=== PATIENT | male | born 1965 | race Caucasian/White ===

== ENCOUNTER 2020-06-04 08:32 | Emergency (ER) | payer MEDICAID, OTHER ==
[~2020-06-04] VITALS: Ht 152.4 cm; Wt 79.4 kg
[2020-06-04] MEDS ORDERED: SODIUM CHLORIDE 0.9% 1,000 ML IVB ONE (10:44)
[2020-06-04] MEDS ORDERED: LORazepam 2MG/ML-1ML VIAL IV ONE (10:45)
[2020-06-04] MEDS ORDERED: SODIUM CHLORIDE 0.9% 1,000 ML IV ONE (10:45)
[2020-06-04] MEDS: FOLIC ACID 1 MG, MULTIPLE VITAMIN 10 ML, MAGNESIUM SULF SDV 50% 8 MEQ, THIAMINE INJ 100... INJ SCH ×10 (11:18→12:00)
[2020-06-04 11:38] LABS: Basophils # (auto) 0 10 ^3/uL (0-0.2); Basophils % (auto) 0.9 % (0.0-2.0); Eosinophils # (auto) 0 10 ^3/uL (0-0.8); Eosinophils % (auto) 0.4 % (0.0-7.0); Hematocrit 50.3 % (41.0-53.0); Hemoglobin 17.1 g/dL (13.5-17.5); Lymphocytes # (auto) 0.6 10 ^3/uL (0.4-5.4); Lymphocytes % (auto) 14.3 % (10.0-50.0); Mean Corpuscular Hemoglobin 33.5 pg (28.0-32.0); Mean Corpuscular Hgb Conc. 33.9 g/dL (32.0-36.0); Mean Corpuscular Volume 98.6 fL (80.0-100.0); Monocytes # (auto) 0.6 10 ^3/uL (0-1.3); Monocytes % (auto) 14.4 % (0.0-12.0); Neutrophils # (auto) 2.7 10 ^3/uL (1.6-8.6); Nucleated Red Blood Cells % 0.1 %; Platelet Count (auto) 103 10^3/uL (140-450); Red Cell Distribution Width 14.5 % (11.8-14.3); White Blood Cell 3.9 10^3/uL (4.4-10.8)
[2020-06-04 11:44] LABS: Calcium 9.6 mg/dL (8.5-10.1); Chloride 104 mmol/L (98-107); Potassium 4.3 mmol/L (3.5-5.1); Sodium 136 mmol/L (136-145)
[2020-06-04 11:49] LABS: Alanine Aminotransferase 98 U/L (16-61); Alkaline Phosphatase 130 U/L (45-117); Anion Gap 11 (5-15); Aspartate Aminotransferase 111 U/L (15-37); BUN/Creatinine Ratio 12.3; Blood Alcohol < 3.0 mg/dL (0-5); Blood Urea Nitrogen 9 mg/dL (7-18); Carbon Dioxide 21 mmol/L (21-32); GFR African American 144 mL/min; GFR Non-African American 119 mL/min; Glucose 84 mg/dL (74-106); Total Protein 8.7 g/dL (6.4-8.2)
[2020-06-04 16:12] VITALS: BP 163/116
== END 2020-06-04 17:19 | disposition home or self-care (01) ==
LOC: ER 08:32
DX: F25.9 Schizoaffective disorder, unspecified (principal); F10.239 Alcohol dependence with withdrawal, unspecified; R74.8 Abnormal levels of other serum enzymes; K76.0 Fatty (change of) liver, not elsewhere classified; J44.9 Chronic obstructive pulmonary disease, unspecified; I10 Essential (primary) hypertension; F31.9 Bipolar disorder, unspecified; F17.210 Nicotine dependence, cigarettes, uncomplicated
CPT/HCPCS: 36415; 71045; 71250; 80053; 80320; 83735; 85025; 93005; 96365; 96366; 96375; 99285; J2060; J3411; J3475; J7030; J7070; 96374

== ENCOUNTER 2020-06-11 16:53 | Inpatient (IN) | payer MEDICAID ==
[~2020-06-11] VITALS: Ht 185.4 cm; Wt 83.6 kg
[2020-06-11 19:08] LABS: Hematocrit 41.3 % (41.0-53.0); Hemoglobin 14.2 g/dL (13.5-17.5); Mean Corpuscular Hemoglobin 34.1 pg (28.0-32.0); Mean Corpuscular Hgb Conc. 34.5 g/dL (32.0-36.0); Platelet Count (auto) 189 10^3/uL (140-450); Red Blood Cells 4.17 10^6/uL (4.5-5.90); Red Cell Distribution Width 14.1 % (11.8-14.3); White Blood Cell 6.7 10^3/uL (4.4-10.8)
[2020-06-11 19:11] LABS: Basophils % (manual) 0 (0.0-2.0); Blast Cells 0; Metamyelocytes % 0; Myelocytes % 0; Promyelocytes % 0; Reactive Lymphocytes 0
[2020-06-11 19:28] LABS: Albumin 2.9 g/dL (3.4-5.0); Anion Gap 12 (5-15); Blood Urea Nitrogen 52 mg/dL (7-18); Calcium 8.7 mg/dL (8.5-10.1); Carbon Dioxide 20 mmol/L (21-32); Chloride 103 mmol/L (98-107); Glucose 99 mg/dL (74-106); Sodium 135 mmol/L (136-145)
[2020-06-11 19:46] LABS: Alanine Aminotransferase 32 U/L (16-61); Alkaline Phosphatase 97 U/L (45-117); Aspartate Aminotransferase 19 U/L (15-37); BUN/Creatinine Ratio 16.9; Bilirubin, Total 0.7 mg/dL (0.2-1.0); GFR African American 27 mL/min; GFR Non-African American 23 mL/min; Total Protein 7.5 g/dL (6.4-8.2)
[2020-06-11 20:46] LABS: Band Neutrophils % (manual) 8
[2020-06-11 20:47] LABS: Eosinophils % (manual) 2 (0-7); Lymphocytes % (manual) 11 (10.0-50.0); Monocytes % (manual) 17 (0-12)
[2020-06-11] MEDS ORDERED: POTASSIUM CHLORIDE 40 MEQ in D5W 5% 1,000 ML IV SCH (21:45)
[2020-06-11] MEDS ORDERED: chlordiazePOXIDE HCL 25 MG CAP PO PRN (22:15)
[2020-06-11] MEDS ORDERED: ALUM & MAG HYDROX-SIMETH LIQ(MAALOX) 30 ML PO PRN (22:15)
[2020-06-11] MEDS ORDERED: MORPHINE SULF INJ 2 MG/ML SYRINGE 1ML IV PRN (22:15)
[2020-06-11] MEDS ORDERED: DOCUSATE SOD 100 MG CAP PO PRN (22:15)
[2020-06-11] MEDS ORDERED: ACETAMINOPHEN 325 MG TAB PO PRN (22:15)
[2020-06-11] MEDS ORDERED: ONDANSETRON HCL 4 MG/2 ML VIAL IV PRN (22:15)
[2020-06-11] MEDS ORDERED: LORazepam 0.5 MG TAB PO PRN (22:15)
[2020-06-11] MEDS ORDERED: HYDROcodone-ACET 5/325MG TAB PO PRN (22:15)
[2020-06-11] MEDS ORDERED: TEMAZEPAM 15 MG CAP PO PRN (22:15)
[2020-06-12] MEDS: SODIUM CHLORIDE 0.9% 1,000 ML IV SCH ×2 (09:00→18:03)
[2020-06-12 10:22] LABS: Basophils # (auto) 0 10 ^3/uL (0-0.2); Eosinophils # (auto) 0 10 ^3/uL (0-0.8); Eosinophils % (auto) 0.2 % (0.0-7.0); Hemoglobin 14.2 g/dL (13.5-17.5); Lymphocytes # (auto) 0.8 10 ^3/uL (0.4-5.4); Neutrophils # (auto) 5.2 10 ^3/uL (1.6-8.6); White Blood Cell 7.2 10^3/uL (4.4-10.8)
[2020-06-12 10:24] LABS: Basophils % (auto) 0.4 % (0.0-2.0); Hematocrit 41.7 % (41.0-53.0); Lymphocytes % (auto) 11.3 % (10.0-50.0); Mean Corpuscular Hemoglobin 33.8 pg (28.0-32.0); Mean Corpuscular Hgb Conc. 34.1 g/dL (32.0-36.0); Mean Corpuscular Volume 99.1 fL (80.0-100.0); Monocytes # (auto) 1.1 10 ^3/uL (0-1.3); Monocytes % (auto) 15.4 % (0.0-12.0); Neutrophils % (auto) 72.7 % (37.0-80.0); Nucleated Red Blood Cells % 0.2 %; Platelet Count (auto) 236 10^3/uL (140-450); Red Cell Distribution Width 14.1 % (11.8-14.3)
[2020-06-12 10:31] LABS: BUN/Creatinine Ratio 27.7; Calcium 9.6 mg/dL (8.5-10.1); Magnesium 2.4 mg/dL (1.6-2.6); Phosphorus 2.8 mg/dL (2.5-4.90); Potassium 3.4 mmol/L (3.5-5.1)
[2020-06-12] MEDS ORDERED: POTASSIUM CHL 20 Meq TABLET PO ONE (12:30)
--- NOTE | 2020-06-12 16:04 | NUR ---
Est energy needs 6198-8947 kcal (20-25 kcal/kg BW 86kg) est protein needs 54-65g (0.6-0.75g/kg BW 86kg r/t elevated RFT) caro casillas. Addendum: 06/12/20 at [address] Amended: Links added.
--- NOTE | 2020-06-12 16:39 | NUR ---
Telemetry admit from ER ANGEL PENN admitted to Telemetry unit after SBAR received. Patient oriented to Betsy johnson RN, unit, room, bed, and unit policies regarding patient care and visiting hours. Patient now on continuous telemetry monitoring, tele box # 55 and telemetry reading on arrival to unit is SINUS RHYTHM IN THE 90'S. Patient weighed by bedscale and encouraged to call if they need something. All questions and concerns addressed, patient verbalized understanding.
[2020-06-12 17:00] VITALS: BP 142/97
--- NOTE | 2020-06-12 18:49 | NUR ---
MRSA SWAB COLLECTED AND SENT TO LAB VIA BULLET.
--- NOTE | 2020-06-12 19:45 | NUR ---
Opening Shift Note Assumed care of patient, awake and alert. No S/S of distress/SOB or pain. Instructed on POC, questions answered. Bed locked in lowest position with side rails up x2 for safety. Call light is within reach and patient encouraged to call as needed. Will continue to monitor for changes Q1hr and PRN.
[2020-06-12] MEDS: FOLIC ACID 1 MG, MULTIPLE VITAMIN 10 ML, MAGNESIUM SULF SDV 50% 8 MEQ, THIAMINE INJ 100... INJ SCH ×5 (20:15)
[2020-06-12 22:00] VITALS: BP 150/98
[2020-06-13] MEDS: SODIUM CHLORIDE 0.9% 1,000 ML IV SCH (04:05)
[2020-06-13 05:13] VITALS: BP 158/109
--- NOTE | 2020-06-13 06:38 | NUR ---
PAGED FOR PATIENTS HIGH BLOOD PRESSURE 158/109 HR 79. PATIENT HAS NO BLOOD PRESSURE MEDICATION ORDERED AT THIS TIME.
[2020-06-13 07:11] LABS: Albumin 2.6 g/dL (3.4-5.0); BUN/Creatinine Ratio 34.6; Calcium 9.2 mg/dL (8.5-10.1); Magnesium 2.3 mg/dL (1.6-2.6); Potassium 3.2 mmol/L (3.5-5.1)
[2020-06-13 07:18] LABS: Bilirubin, Total 0.5 mg/dL (0.2-1.0)
--- NOTE | 2020-06-13 07:30 | NUR ---
RECEIVED REPORT FROM NIGHT NURSE. PATIENT RESTING IN BED, NO DISTRESS NOTED. WILL CONTINUE TO MONITOR.
--- NOTE | 2020-06-13 08:30 | NUR ---
BLOOD PRESSURE REASSESSMENT 120/77, HR 110 WILL CONTINUE TO MONITOR.
[2020-06-13 09:00] VITALS: BP 120/77
[2020-06-13] MEDS ORDERED: THIAMINE HCL 100 MG TAB PO SCH (10:00)
[2020-06-13] MEDS ORDERED: MULTIPLE VITAMINS W/ MINERALS TAB PO SCH (10:00)
[2020-06-13] MEDS ORDERED: POTASSIUM CHL 20 Meq TABLET PO ONE (10:45)
[2020-06-13] MEDS: FOLIC ACID 1 MG, MULTIPLE VITAMIN 10 ML, MAGNESIUM SULF SDV 50% 8 MEQ, THIAMINE INJ 100... INJ SCH ×5 (12:00)
--- NOTE | 2020-06-13 12:10 | NUR ---
URINE SAMPLE COLLECTION ATTEMPTED TO COLLECT URINE SPECIMEN. PATIENT STATED HE DOES NOT PEE THAT OFTEN. STATED HE WOULD TELL ME WHEN HE NEEDS TO GO.
[2020-06-13 12:16] LABS: Urine Bacteria NONE SEEN /hpf (None Seen); Urine Blood Negative /uL (Negative); Urine Specific Gravity 1.017 (1.001-1.035); Urine WBC 3 /hpf (0 - 3)
[2020-06-13 12:31] LABS: Amphetamine Screen, Urine NEGATIVE (NEGATIVE); Barbiturate Scree,Urine NEGATIVE (NEGATIVE); Benzodiazephine Screen, Urine POSITIVE (NEGATIVE); Cannabinoid Screen, Urine NEGATIVE (NEGATIVE); Cocaine Screen, Urine NEGATIVE (NEGATIVE); Opiate Scree,Urine NEGATIVE (NEGATIVE); Phencyclidine Screen, Urine NEGATIVE (NEGATIVE)
[2020-06-13 13:00] VITALS: BP 124/89
[2020-06-13 15:18] VITALS: BP 124/89
--- NOTE | 2020-06-13 16:16 | NUR ---
D/ C Planning Regarding social service consult for walker. Faxed clinical information to [facility] and [employer] [facility] equipment. Per Dayan with [employer] they will deliver walker to front lobby at 16:30. Informed nurse. Obtain authorization from [facility] [id number].
[2020-06-13 17:00] VITALS: BP 142/98
[2020-06-13] MEDS ORDERED: MUPIROCIN 2% OINT 15gm or 22gm EACHNOSTRI SCH (17:43)
--- NOTE | 2020-06-13 17:44 | NUR ---
SPOKE WITH DOCTOR WILFREDO. INFORMED HIM OF MRSA POSITIVE RESULT. ORDERS RECEIVED, WILL PLACE AND CARRY OUT. BACTROBAN OINTMENT TO GO HOME WITH THE PATIENT.
--- NOTE | 2020-06-13 18:09 | NUR ---
WALKER DELIVERED TO BEDSIDE.
--- NOTE | 2020-06-13 18:15 | NUR ---
assessment Patient is a 55 year old male who is hard of hearing. Per patient prior to admission he lived home with his brother Royal and functioned independently. Per patient he has a cane for home use. Patient informed me he does not see his PCP so he does not know who his PCP is. Patient informed me he drinks 2 or 3 beers daily. Patient refused resources for inpatient or outpatient ETOH facilities. Patient refused resources for AA. Patient informed me he is safe at home and feels safe returning home on discharge. Patient verbalized understanding and agreed to discharge plan home. Addendum: 06/13/20 at 1819 by Humaira TORO Amended: Links added.
--- NOTE | 2020-06-13 19:16 | NUR ---
Discharge instructions given as ordered. Encourage to follow up with PMD as instructed. All questions and concerns addressed. Patient verbalized understanding. Medication reconciliation form completed and copy given to patient. IV removed with catheter intact, pressure dressing applied. Telemetry unit returned to ICU. Patient taken to vehicle via wheelchair with all personal belongings, accompanied by staff member. No distress noted at time of departure.
== END 2020-06-13 19:14 | disposition home or self-care (01) | DRG 469 ==
LOC: EDUNIT# 16:53 → EDBD 16:53 → ER 16:53 → TELE 16:54 → TELE-WESTW 06-12 16:39
PROVIDERS: ADMIT Hospitalist; ATTEND Hospitalist
DX: N17.0 Acute kidney failure with tubular necrosis (principal); E86.0 Dehydration; E87.6 Hypokalemia; F19.10 Other psychoactive substance abuse, uncomplicated; E43 Unspecified severe protein-calorie malnutrition; N18.9 Chronic kidney disease, unspecified; I12.9 Hypertensive chronic kidney disease with stage 1 through stage 4 chronic kidney disease, or unspecified chronic kidney disease; F17.210 Nicotine dependence, cigarettes, uncomplicated; J44.9 Chronic obstructive pulmonary disease, unspecified; F31.9 Bipolar disorder, unspecified; Z72.89 Other problems related to lifestyle; Z71.41 Alcohol abuse counseling and surveillance of alcoholic; Z79.899 Other long term (current) drug therapy; Z68.24 Body mass index [BMI] 24.0-24.9, adult; F10.20 Alcohol dependence, uncomplicated
CPT/HCPCS: 36415; 70450; 80048; 80053; 80307; 80320; 81001; 83735; 84100; 84132; 84484; 85007; 85025; 85027; 87081; 87086; 87088; 87186; 93005; 97163; 99291; G0378

== ENCOUNTER 2021-04-17 09:03 | Inpatient (IN) | payer MEDICAID ==
[~2021-04-17] VITALS: Ht 177.8 cm; Wt 74.1 kg
[2021-04-17] MEDS ORDERED: LABETALOL HCL 5 MG/ML 4ML SYRINGE IV ONE (10:30)
[2021-04-17 10:50] LABS: Basophils # (auto) 0 10 ^3/uL (0-0.2); Basophils % (auto) 0.8 % (0.0-2.0); Eosinophils # (auto) 0 10 ^3/uL (0-0.8); Eosinophils % (auto) 0.1 % (0.0-7.0); Hematocrit 42.9 % (41.0-53.0); Hemoglobin 15.1 g/dL (13.5-17.5); Lymphocytes # (auto) 0.6 10 ^3/uL (0.4-5.4); Lymphocytes % (auto) 10.4 % (10.0-50.0); Mean Corpuscular Hemoglobin 34.3 pg (28.0-32.0); Mean Corpuscular Hgb Conc. 35.2 g/dL (32.0-36.0); Mean Corpuscular Volume 97.5 fL (80.0-100.0); Monocytes # (auto) 0.6 10 ^3/uL (0-1.3); Monocytes % (auto) 10.1 % (0.0-12.0); Neutrophils # (auto) 4.5 10 ^3/uL (1.6-8.6); Neutrophils % (auto) 78.6 % (37.0-80.0); Nucleated Red Blood Cells % 0.1 %; Platelet Count (auto) 151 10^3/uL (140-450); Red Cell Distribution Width 14.9 % (11.8-14.3); White Blood Cell 5.7 10^3/uL (4.4-10.8)
[2021-04-17] MEDS ORDERED: chlordiazePOXIDE HCL 5 MG CAP PO ONE (11:00)
[2021-04-17 11:12] LABS: Chloride 100 mmol/L (98-107); Potassium 3.8 mmol/L (3.5-5.1); Sodium 133 mmol/L (136-145)
[2021-04-17 11:20] LABS: Alanine Aminotransferase 120 U/L (16-61); Albumin 3.3 g/dL (3.4-5.0); Alkaline Phosphatase 122 U/L (45-117); Anion Gap 9 (5-15); Aspartate Aminotransferase 112 U/L (15-37); BUN/Creatinine Ratio 23.9; Bilirubin, Total 0.6 mg/dL (0.2-1.0); Blood Urea Nitrogen 11 mg/dL (7-18); Calcium 9.3 mg/dL (8.5-10.1); Carbon Dioxide 24 mmol/L (21-32); GFR African American 244 mL/min; GFR Non-African American 202 mL/min; Glucose 116 mg/dL (74-106); Total Protein 7.8 g/dL (6.4-8.2)
[2021-04-17] MEDS ORDERED: cloNIDine HCL 0.1 MG TAB ONE (11:34)
[2021-04-17] MEDS ORDERED: cloNIDine HCL 0.1 MG TAB PO ONE (11:45)
[2021-04-17] MEDS ORDERED: amLODIPine BESYLATE 5 MG TAB PO ONE (13:00)
[2021-04-17] MEDS ORDERED: THIAMINE 100mg/ml INJ (200mg/2ml VIAL) IV ONE (13:15)
[2021-04-17] MEDS ORDERED: SODIUM CHLORIDE 0.9% 1,000 ML IV ONE ×2 (13:15)
[2021-04-17] MEDS ORDERED: FOLIC ACID 1 MG, MULTIPLE VITAMIN 10 ML, THIAMINE INJ 100 MG in D5W/SOD CHL 0.45% 1,000 ML INJ SCH ×2 (13:15→15:00)
[2021-04-17 13:52] LABS: Urine Amorphous Crystal FEW /hpf (None Seen); Urine Bacteria MOD /hpf (None Seen); Urine Blood Negative /uL (Negative); Urine Specific Gravity 1.012 (1.001-1.035); Urine WBC 205 /hpf (0 - 3)
[2021-04-17 14:03] LABS: Amphetamine Screen, Urine NEGATIVE (NEGATIVE); Barbiturate Scree,Urine NEGATIVE (NEGATIVE); Benzodiazephine Screen, Urine NEGATIVE (NEGATIVE); Cannabinoid Screen, Urine NEGATIVE (NEGATIVE); Cocaine Screen, Urine NEGATIVE (NEGATIVE); Opiate Scree,Urine NEGATIVE (NEGATIVE); Phencyclidine Screen, Urine NEGATIVE (NEGATIVE)
[2021-04-17] MEDS ORDERED: ONDANSETRON HCL 4 MG/2 ML VIAL IV PRN (15:00)
[2021-04-17] MEDS ORDERED: MORPHINE SULF INJ 2 MG/ML SYRINGE 1ML IV PRN (15:00)
[2021-04-17] MEDS ORDERED: ACETAMINOPHEN 325 MG TAB PO PRN (15:00)
[2021-04-17] MEDS ORDERED: NITROGLYCERIN 0.4 MG SL TAB SL PRN (15:00)
[2021-04-17] MEDS ORDERED: LORazepam 2MG/ML-1ML VIAL IV PRN (19:30)
[2021-04-17 22:00] VITALS: BP 158/101
[2021-04-17] MEDS: LORazepam 2MG/ML-1ML VIAL IV PRN (22:57)
[2021-04-17] MEDS: HYDROcodone-ACET 5/325MG TAB PO PRN (23:07)
[2021-04-18] MEDS ORDERED: OLAN20TA PO (03:41)
[2021-04-18] MEDS ORDERED: LORA-655 PO (03:41)
[2021-04-18] MEDS ORDERED: DIVA500T2 PO (03:41)
[2021-04-18] MEDS: HYDROcodone-ACET 5/325MG TAB PO PRN ×2 (04:06→17:36)
[2021-04-18 05:00] VITALS: BP 161/98
[2021-04-18] MEDS: LORazepam 2MG/ML-1ML VIAL IV PRN ×2 (05:18→22:14)
[2021-04-18] MEDS: LABETALOL HCL 5 MG/ML 4ML SYRINGE IV PRN (05:20)
[2021-04-18 06:45] LABS: Albumin 3.2 g/dL (3.4-5.0); Calcium 8.6 mg/dL (8.5-10.1); Magnesium 1.8 mg/dL (1.6-2.6); Potassium 3.4 mmol/L (3.5-5.1)
[2021-04-18 06:49] LABS: BUN/Creatinine Ratio 15.4; Bilirubin, Total 0.7 mg/dL (0.2-1.0); Total Protein 7.3 g/dL (6.4-8.2)
[2021-04-18 09:00] VITALS: BP 139/73
[2021-04-18] MEDS ORDERED: FOLIC ACID 1 MG, MULTIPLE VITAMIN 10 ML, THIAMINE INJ 100 MG in D5W/SOD CHL 0.45% 1,000 ML INJ SCH (12:00)
[2021-04-18] MEDS: MORPHINE SULF INJ 2 MG/ML SYRINGE 1ML IV PRN ×2 (12:22→20:02)
[2021-04-18 13:00] VITALS: BP 154/92
[2021-04-18] MEDS: FOLIC ACID 1 MG, MULTIPLE VITAMIN 10 ML, THIAMINE INJ 100 MG, MAGNESIUM SULF SDV 50% 8 ... INJ SCH ×5 (15:12)
[2021-04-18] MEDS: chlordiazePOXIDE HCL 5 MG CAP PO PRN (15:23)
[2021-04-18 16:55] VITALS: BP 138/96
[2021-04-18] MEDS ORDERED: PNEUMOCOCCAL VACC POLYS 25 MCG/0.5 ML VIAL IM ONE (19:30)
[2021-04-18 22:00] VITALS: BP 150/97
[2021-04-19] MEDS: MORPHINE SULF INJ 2 MG/ML SYRINGE 1ML IV PRN ×6 (00:04→23:51)
[2021-04-19 05:00] VITALS: BP 129/103
[2021-04-19 06:20] LABS: Basophils # (auto) 0 10 ^3/uL (0-0.2); Basophils % (auto) 0.9 % (0.0-2.0); Eosinophils # (auto) 0.1 10 ^3/uL (0-0.8); Eosinophils % (auto) 2.4 % (0.0-7.0); Hematocrit 41.3 % (41.0-53.0); Hemoglobin 14.3 g/dL (13.5-17.5); Mean Corpuscular Hemoglobin 34.3 pg (28.0-32.0); Mean Corpuscular Hgb Conc. 34.6 g/dL (32.0-36.0); Mean Corpuscular Volume 99.2 fL (80.0-100.0); Monocytes # (auto) 0.6 10 ^3/uL (0-1.3); Monocytes % (auto) 11.4 % (0.0-12.0); Neutrophils # (auto) 3.6 10 ^3/uL (1.6-8.6); Neutrophils % (auto) 67.3 % (37.0-80.0); Nucleated Red Blood Cells % 0.1 %; Platelet Count (auto) 131 10^3/uL (140-450); Red Blood Cells 4.16 10^6/uL (4.5-5.90); Red Cell Distribution Width 14.9 % (11.8-14.3); White Blood Cell 5.4 10^3/uL (4.4-10.8)
[2021-04-19 06:34] LABS: Albumin 3.1 g/dL (3.4-5.0); Calcium 8.6 mg/dL (8.5-10.1); Magnesium 2.1 mg/dL (1.6-2.6); Potassium 3.4 mmol/L (3.5-5.1)
[2021-04-19 06:39] LABS: BUN/Creatinine Ratio 11.5; Bilirubin, Total 0.6 mg/dL (0.2-1.0); Total Protein 7.1 g/dL (6.4-8.2)
[2021-04-19] MEDS: LORazepam 2MG/ML-1ML VIAL IV PRN (08:09)
[2021-04-19 09:00] VITALS: BP 143/98
[2021-04-19] MEDS: FOLIC ACID 1 MG, MULTIPLE VITAMIN 10 ML, THIAMINE INJ 100 MG, MAGNESIUM SULF SDV 50% 8 ... INJ SCH ×5 (11:12)
[2021-04-19] MEDS: OLANZapine 5 MG TAB PO SCH ×2 (11:13→21:14)
[2021-04-19] MEDS: LORazepam 0.5 MG TAB PO SCH (11:13)
[2021-04-19] MEDS: HYDROcodone-ACET 5/325MG TAB PO PRN (11:14)
[2021-04-19 12:48] VITALS: BP 132/97
[2021-04-19] MEDS ORDERED: SODIUM CHLORIDE 0.9% 1,000 ML IV ONE (13:15)
[2021-04-19] MEDS: chlordiazePOXIDE HCL 5 MG CAP PO PRN (15:57)
[2021-04-19 16:54] VITALS: BP 165/108
[2021-04-19] MEDS: LABETALOL HCL 5 MG/ML 4ML SYRINGE IV PRN (17:45)
[2021-04-19 18:40] VITALS: BP 153/105
[2021-04-19 22:00] VITALS: BP 151/86
[2021-04-20] MEDS: LABETALOL HCL 5 MG/ML 4ML SYRINGE IV PRN ×4 (02:20→16:31)
[2021-04-20] MEDS: MORPHINE SULF INJ 2 MG/ML SYRINGE 1ML IV PRN ×5 (04:35→22:12)
[2021-04-20 05:00] VITALS: BP 133/110
[2021-04-20] MEDS: HYDROcodone-ACET 5/325MG TAB PO PRN ×3 (05:42→20:04)
[2021-04-20 09:00] VITALS: BP 154/98
[2021-04-20] MEDS: LORazepam 0.5 MG TAB PO SCH (09:42)
[2021-04-20] MEDS: OLANZapine 5 MG TAB PO SCH ×2 (09:42→22:14)
[2021-04-20 13:00] VITALS: BP 148/106
[2021-04-20] MEDS: FOLIC ACID 1 MG, MULTIPLE VITAMIN 10 ML, THIAMINE INJ 100 MG, MAGNESIUM SULF SDV 50% 8 ... INJ SCH ×5 (13:14)
[2021-04-20 17:00] VITALS: BP 166/126
[2021-04-20] MEDS ORDERED: MET50T PO (18:46)
[2021-04-20] MEDS ORDERED: POTASSIUM CHL 20 Meq TABLET PO ONE (19:00)
[2021-04-20 22:00] VITALS: BP 159/108
[2021-04-20] MEDS: METOPROLOL TARTRATE 25 MG TAB PO SCH (22:14)
[2021-04-21] MEDS: HYDROcodone-ACET 5/325MG TAB PO PRN ×2 (02:30→06:14)
[2021-04-21] MEDS: MORPHINE SULF INJ 2 MG/ML SYRINGE 1ML IV PRN ×3 (02:30→12:13)
[2021-04-21 05:00] VITALS: BP 166/100
[2021-04-21 05:07] LABS: Hematocrit 44.7 % (41.0-53.0); Mean Corpuscular Volume 99.6 fL (80.0-100.0); Red Blood Cells 4.49 10^6/uL (4.5-5.90); White Blood Cell 6.3 10^3/uL (4.4-10.8)
[2021-04-21 05:09] LABS: Hemoglobin 15.3 g/dL (13.5-17.5); Mean Corpuscular Hemoglobin 34.2 pg (28.0-32.0); Mean Corpuscular Hgb Conc. 34.3 g/dL (32.0-36.0); Platelet Count (auto) 154 10^3/uL (140-450); Red Cell Distribution Width 14.7 % (11.8-14.3)
[2021-04-21 05:15] LABS: Basophils % (manual) 0 (0.0-2.0); Blast Cells 0; Myelocytes % 0; Promyelocytes % 0; Reactive Lymphocytes 0
[2021-04-21 05:26] LABS: BUN/Creatinine Ratio 10.6; Calcium 8.9 mg/dL (8.5-10.1); Magnesium 1.9 mg/dL (1.6-2.6)
[2021-04-21 08:09] LABS: Band Neutrophils % (manual) 4; Eosinophils % (manual) 2 (0-7); Lymphocytes % (manual) 14 (10.0-50.0); Metamyelocytes % 1; Monocytes % (manual) 17 (0-12)
[2021-04-21] MEDS: METOPROLOL TARTRATE 25 MG TAB PO SCH ×2 (08:28→11:48)
[2021-04-21] MEDS: OLANZapine 5 MG TAB PO SCH (08:28)
[2021-04-21] MEDS: LORazepam 0.5 MG TAB PO SCH (08:28)
[2021-04-21 09:00] VITALS: BP 108/96
[2021-04-21] MEDS: FOLIC ACID 1 MG, MULTIPLE VITAMIN 10 ML, THIAMINE INJ 100 MG, MAGNESIUM SULF SDV 50% 8 ... INJ SCH ×5 (12:11)
[2021-04-21 13:00] VITALS: BP 138/101
[2021-04-21 14:30] VITALS: BP 138/101
== END 2021-04-21 16:46 | disposition home health service (06) | DRG 199 ==
LOC: EDBD 09:03 → ER 09:03 → TELE 14:47 → TELE-WESTW 21:06
PROVIDERS: ADMIT Internal Medicine; ATTEND Internal Medicine
DX: I16.0 Hypertensive urgency (principal); F20.9 Schizophrenia, unspecified; F10.239 Alcohol dependence with withdrawal, unspecified; F17.210 Nicotine dependence, cigarettes, uncomplicated; F31.9 Bipolar disorder, unspecified; H57.02 Anisocoria; K59.00 Constipation, unspecified; F41.9 Anxiety disorder, unspecified; Z20.822 Contact with and (suspected) exposure to COVID-19; R26.9 Unspecified abnormalities of gait and mobility; R00.0 Tachycardia, unspecified; I10 Essential (primary) hypertension; Z88.8 Allergy status to other drugs, medicaments and biological substances; Z91.5 Personal history of self-harm
CPT/HCPCS: 36415; 70450; 71045; 74176; 80048; 80053; 80307; 81001; 83735; 84484; 85007; 85025; 85027; 87081; 87426; 93005; 93306; 96361; 96374; 96375; 97110; 97116; 97530; G0378; J2405; J3490

== ENCOUNTER 2021-07-05 16:21 | Inpatient (IN) | payer MEDICAID ==
[~2021-07-05] VITALS: Ht 177.8 cm; Wt 74.1 kg
[~2021-07-05 16:21] MED LIST: DIVA500T2 PO; LORA-655 PO; MET50T PO; OLAN20TA PO
[2021-07-05] MEDS ORDERED: SODIUM CHLORIDE 0.9% 1,000 ML IV ONE (17:15)
[2021-07-05 18:57] LABS: Basophils # (auto) 0 10 ^3/uL (0-0.2); Eosinophils # (auto) 0 10 ^3/uL (0-0.8)
[2021-07-05 18:59] LABS: Basophils % (auto) 0.5 % (0.0-2.0); Eosinophils % (auto) 0.1 % (0.0-7.0); Hematocrit 39.1 % (41.0-53.0); Hemoglobin 13.9 g/dL (13.5-17.5); Lymphocytes % (auto) 13.3 % (10.0-50.0); Mean Corpuscular Hemoglobin 35.2 pg (28.0-32.0); Mean Corpuscular Hgb Conc. 35.5 g/dL (32.0-36.0); Monocytes # (auto) 1.2 10 ^3/uL (0-1.3); Monocytes % (auto) 15.1 % (0.0-12.0); Neutrophils # (auto) 5.5 10 ^3/uL (1.6-8.6); Red Blood Cells 3.95 10^6/uL (4.5-5.90); Red Cell Distribution Width 13.6 % (11.8-14.3); White Blood Cell 7.7 10^3/uL (4.4-10.8)
[2021-07-05 19:06] LABS: Alanine Aminotransferase 69 U/L (16-61); Albumin 3.2 g/dL (3.4-5.0); Anion Gap 11 (5-15); Aspartate Aminotransferase 79 U/L (15-37); Blood Urea Nitrogen 5 mg/dL (7-18); Calcium 8.3 mg/dL (8.5-10.1); Carbon Dioxide 21 mmol/L (21-32); Chloride 96 mmol/L (98-107); Glucose 83 mg/dL (74-106); Magnesium 1.8 mg/dL (1.6-2.6); Potassium 3.8 mmol/L (3.5-5.1); Sodium 128 mmol/L (136-145)
[2021-07-05 19:11] LABS: Alkaline Phosphatase 85 U/L (45-117); BUN/Creatinine Ratio 11.4; Bilirubin, Total 0.5 mg/dL (0.2-1.0); GFR African American 256 mL/min; GFR Non-African American 212 mL/min; Total Protein 7.6 g/dL (6.4-8.2)
[2021-07-05] MEDS ORDERED: ACETAMINOPHEN 500 MG TAB PO ONE ×2 (21:23)
[2021-07-06] VITALS (7 sets, daily range): BP systolic 115–177; BP diastolic 69–110
[2021-07-06 00:51] LABS: Amphetamine Screen, Urine NEGATIVE (NEGATIVE); Barbiturate Scree,Urine NEGATIVE (NEGATIVE); Benzodiazephine Screen, Urine NEGATIVE (NEGATIVE); Cannabinoid Screen, Urine NEGATIVE (NEGATIVE); Cocaine Screen, Urine NEGATIVE (NEGATIVE); Opiate Scree,Urine NEGATIVE (NEGATIVE); Phencyclidine Screen, Urine NEGATIVE (NEGATIVE)
[2021-07-06 01:06] LABS: Urine Bacteria FEW /hpf (None Seen); Urine Blood Negative /uL (Negative); Urine Specific Gravity 1.004 (1.001-1.035); Urine WBC 2 /hpf (0 - 3)
[2021-07-06] MEDS ORDERED: MORPHINE SULF INJ 2 MG/ML SYRINGE 1ML IV PRN (01:45)
[2021-07-06] MEDS ORDERED: NITROGLYCERIN 0.4 MG SL TAB SL PRN (01:45)
[2021-07-06] MEDS ORDERED: ONDANSETRON HCL 4 MG/2 ML VIAL IV PRN (01:45)
[2021-07-06] MEDS: SODIUM CHLORIDE 0.9% 1,000 ML IV SCH ×2 (01:45→09:38)
[2021-07-06] MEDS: hydrALAZINE HCL 20 MG/ML VL IV PRN (04:18)
[2021-07-06] MEDS: HYDROcodone-ACET 10/325MG TAB PO PRN ×4 (04:19→22:25)
[2021-07-06] MEDS: ENOXAPARIN SOD 40 MG/0.4 ML SYRINGE SC SCH (09:38)
[2021-07-06 10:42] LABS: Basophils # (auto) 0 10 ^3/uL (0-0.2); Eosinophils # (auto) 0 10 ^3/uL (0-0.8); Eosinophils % (auto) 0.1 % (0.0-7.0); Lymphocytes # (auto) 0.6 10 ^3/uL (0.4-5.4); White Blood Cell 7.4 10^3/uL (4.4-10.8)
[2021-07-06 10:46] LABS: Basophils % (auto) 0.5 % (0.0-2.0); Hemoglobin 15.2 g/dL (13.5-17.5); Lymphocytes % (auto) 8.2 % (10.0-50.0); Mean Corpuscular Hemoglobin 34.7 pg (28.0-32.0); Mean Corpuscular Hgb Conc. 35.3 g/dL (32.0-36.0); Mean Corpuscular Volume 98.4 fL (80.0-100.0); Monocytes % (auto) 14.2 % (0.0-12.0); Neutrophils # (auto) 5.7 10 ^3/uL (1.6-8.6); Red Blood Cells 4.37 10^6/uL (4.5-5.90); Red Cell Distribution Width 13.5 % (11.8-14.3)
[2021-07-06 10:58] LABS: Albumin 3.4 g/dL (3.4-5.0); Potassium 3.9 mmol/L (3.5-5.1)
[2021-07-06 11:01] LABS: Bilirubin, Total 0.8 mg/dL (0.2-1.0)
[2021-07-06] MEDS ORDERED: LORazepam 0.5 MG TAB PO SCH (13:30)
[2021-07-06] MEDS ORDERED: DIVA500T2 PO (14:17)
[2021-07-06] MEDS ORDERED: PANT40TA2 PO (14:17)
[2021-07-06] MEDS ORDERED: GABA300C10 PO (14:17)
[2021-07-06] MEDS ORDERED: OLAN20TA PO (14:17)
[2021-07-06] MEDS ORDERED: MET50T PO (14:17)
[2021-07-06] MEDS: GABAPENTIN 300 MG CAP PO SCH ×2 (15:33→22:23)
[2021-07-06] MEDS: OLANZapine 5 MG TAB PO SCH (22:22)
[2021-07-06] MEDS: METOPROLOL TARTRATE 25 MG TAB PO SCH (22:24)
[2021-07-07] VITALS (10 sets, daily range): BP systolic 87–151; BP diastolic 52–103
[2021-07-07] MEDS: HYDROcodone-ACET 10/325MG TAB PO PRN ×4 (05:28→19:57)
[2021-07-07] MEDS: GABAPENTIN 300 MG CAP PO SCH ×3 (05:28→22:16)
[2021-07-07] MEDS: ENOXAPARIN SOD 40 MG/0.4 ML SYRINGE SC SCH (09:07)
[2021-07-07] MEDS: OLANZapine 5 MG TAB PO SCH ×2 (09:07→22:16)
[2021-07-07] MEDS: METOPROLOL TARTRATE 25 MG TAB PO SCH ×2 (09:08→22:16)
[2021-07-07] MEDS ORDERED: SODIUM CHLORIDE 0.9% 1,000 ML IV ONE (14:15)
[2021-07-07] MEDS: D5W/SOD CHLO 0.9% 1,000 ML IV SCH ×2 (17:33→22:17)
[2021-07-08] MEDS: hydrALAZINE HCL 20 MG/ML VL IV PRN (04:20)
[2021-07-08] MEDS: HYDROcodone-ACET 10/325MG TAB PO PRN ×3 (04:20→08:52)
[2021-07-08 05:00] VITALS: BP 153/108
[2021-07-08] MEDS: GABAPENTIN 300 MG CAP PO SCH (06:37)
[2021-07-08] MEDS: D5W/SOD CHLO 0.9% 1,000 ML IV SCH (06:37)
[2021-07-08] MEDS: ENOXAPARIN SOD 40 MG/0.4 ML SYRINGE SC SCH (08:42)
[2021-07-08] MEDS: OLANZapine 5 MG TAB PO SCH (08:42)
[2021-07-08 09:00] VITALS: BP 120/83
== END 2021-07-08 11:42 | DRG 204 ==
LOC: ER 16:21 → EDBD 16:21 → TELE 07-06 01:44 → TELE-WESTW 07-06 03:20 → WEST WING 07-07 09:02
PROVIDERS: ADMIT Hospitalist; ATTEND Hospitalist
DX: R55 Syncope and collapse (principal); E87.1 Hypo-osmolality and hyponatremia; I16.0 Hypertensive urgency; R53.1 Weakness; Z20.822 Contact with and (suspected) exposure to COVID-19; F20.9 Schizophrenia, unspecified; F10.239 Alcohol dependence with withdrawal, unspecified; F17.210 Nicotine dependence, cigarettes, uncomplicated; F31.9 Bipolar disorder, unspecified; Z81.8 Family history of other mental and behavioral disorders; Z82.49 Family history of ischemic heart disease and other diseases of the circulatory system; Z91.14 Patient's other noncompliance with medication regimen; Z79.899 Other long term (current) drug therapy; Z79.891 Long term (current) use of opiate analgesic; Z79.01 Long term (current) use of anticoagulants; Z88.8 Allergy status to other drugs, medicaments and biological substances
CPT/HCPCS: 36415; 70450; 71045; 80053; 80307; 81001; 83735; 84443; 84484; 85025; 85379; 87426; 93886; 96360; 97163; G0378; J7042

== ENCOUNTER 2023-05-11 11:58 | Inpatient (IN) | payer MEDICAID ==
[~2023-05-11] VITALS: Ht 175.3 cm; Wt 88.3 kg
[~2023-05-11 11:58] MED LIST changes: +CEPH-510 PO; -DIVA500T2 PO; +DIVA500T3 PO; +GABA-1250 PO; +NAPR-746 PO; +PANT40TA2 PO
[2023-05-11] MEDS ORDERED: TETANUS-DIPTH-ACEL PERTUSSIS 0.5ML SYR Tdap IM ONE (14:15)
[2023-05-11 14:44] LABS: Basophils # (auto) 0 10 ^3/uL (0-0.2); Basophils % (auto) 0.7 % (0.0-2.0); Eosinophils # (auto) 0.1 10 ^3/uL (0-0.8); Eosinophils % (auto) 1.1 % (0.0-7.0); Hemoglobin 16.9 g/dL (13.5-17.5); Lymphocytes # (auto) 1.3 10 ^3/uL (0.4-5.4); Lymphocytes % (auto) 20.4 % (10.0-50.0); Mean Corpuscular Hgb Conc. 35.1 g/dL (32.0-36.0); Monocytes # (auto) 0.7 10 ^3/uL (0-1.3); Monocytes % (auto) 10.8 % (0.0-12.0); Neutrophils # (auto) 4.3 10 ^3/uL (1.6-8.6); Nucleated Red Blood Cells % 0.3 %; Red Blood Cells 5.11 10^6/uL (4.5-5.90); Red Cell Distribution Width 13.3 % (11.8-14.3); White Blood Cell 6.5 10^3/uL (4.4-10.8)
[2023-05-11 14:56] LABS: Albumin 3.5 g/dL (3.4-5.0); Calcium 8.6 mg/dL (8.5-10.1); Potassium 4.4 mmol/L (3.5-5.1)
[2023-05-11 14:58] LABS: INR 1.03 (0.9-1.15); Partial Thromboplastin Time 35.6 sec (24.6-33.4)
[2023-05-11 15:00] LABS: BUN/Creatinine Ratio 11.7 (10.0-20.0); Bilirubin, Total 0.9 mg/dL (0.2-1.0); Total Protein 8.1 g/dL (6.4-8.2)
[2023-05-11] MEDS ORDERED: SODIUM CHLORIDE 0.9% 1,000 ML IV ONE (15:45)
[2023-05-11] MEDS ORDERED: THIAMINE 100mg/ml INJ (200mg/2ml VIAL) IV ONE (16:00)
[2023-05-11] MEDS ORDERED: FOLIC ACID 1 MG in D5W 5% 50 ML INJ ONE (16:00)
[2023-05-11] MEDS ORDERED: DOCUSATE SOD 100 MG CAP PO PRN (18:15)
[2023-05-11] MEDS ORDERED: LORazepam 2MG/ML-1ML VIAL IV PRN (18:15)
[2023-05-11] MEDS ORDERED: hydrALAZINE HCL 20 MG/ML VL IV PRN (19:00)
[2023-05-11] MEDS: chlordiazePOXIDE HCL 25 MG CAP PO SCH (19:58)
[2023-05-12] MEDS: chlordiazePOXIDE HCL 25 MG CAP PO SCH ×3 (02:15→10:59)
[2023-05-12] MEDS: SODIUM CHLORIDE 0.9% 1,000 ML IV SCH ×4 (02:35→20:03)
[2023-05-12 05:32] LABS: Basophils # (auto) 0 10 ^3/uL (0-0.2); Basophils % (auto) 0.6 % (0.0-2.0); Eosinophils # (auto) 0 10 ^3/uL (0-0.8); Eosinophils % (auto) 0.6 % (0.0-7.0); Hematocrit 46.8 % (41.0-53.0); Hemoglobin 16.4 g/dL (13.5-17.5); Lymphocytes # (auto) 0.9 10 ^3/uL (0.4-5.4); Lymphocytes % (auto) 14.4 % (10.0-50.0); Mean Corpuscular Hemoglobin 32.8 pg (28.0-32.0); Mean Corpuscular Hgb Conc. 35.1 g/dL (32.0-36.0); Mean Corpuscular Volume 93.6 fL (80.0-100.0); Monocytes # (auto) 0.7 10 ^3/uL (0-1.3); Monocytes % (auto) 11.8 % (0.0-12.0); Neutrophils # (auto) 4.6 10 ^3/uL (1.6-8.6); Neutrophils % (auto) 72.6 % (37.0-80.0); Nucleated Red Blood Cells % 0.1 %; Red Cell Distribution Width 13.1 % (11.8-14.3); White Blood Cell 6.3 10^3/uL (4.4-10.8)
[2023-05-12 05:44] LABS: Albumin 3.1 g/dL (3.4-5.0); Calcium 8.6 mg/dL (8.5-10.1); Potassium 4.1 mmol/L (3.5-5.1)
[2023-05-12 05:47] LABS: Bilirubin, Total 0.9 mg/dL (0.2-1.0); Total Protein 7.5 g/dL (6.4-8.2)
[2023-05-12] MEDS: METOPROLOL TARTRATE 50 MG TAB PO SCH ×2 (10:00→10:58)
[2023-05-12] MEDS: OLANZapine 5 MG TAB PO SCH ×2 (10:00→10:59)
[2023-05-12] MEDS: ONDANSETRON HCL 4 MG/2 ML VIAL IV PRN ×2 (10:58→20:03)
[2023-05-12] MEDS: PANTOPRAZOLE 40 MG/10 ML VIAL INJ IV SCH (10:59)
[2023-05-12] MEDS: NICOTINE 21MG/24 HR TOPICAL PATCH TD SCH (10:59)
[2023-05-12] MEDS: MORPHINE SULFATE INJ 2 MG/ml SYRG IV PRN ×2 (11:00→20:02)
[2023-05-12] MEDS: FOLIC ACID 1 MG, MULTIPLE VITAMIN 10 ML, MAGNESIUM SULF SDV 50% 8 MEQ, THIAMINE INJ 100... INJ SCH ×5 (12:00)
[2023-05-12 15:10] LABS: Creatinine, Urine 46 mg/dL (30.0-125.0); Sodium Urine 14 mmol/L (40-220)
[2023-05-13] MEDS: OLANZapine 5 MG TAB PO SCH ×3 (00:42→22:44)
[2023-05-13] MEDS: METOPROLOL TARTRATE 50 MG TAB PO SCH ×3 (00:42→22:45)
[2023-05-13] MEDS: MORPHINE SULFATE INJ 2 MG/ml SYRG IV PRN ×4 (00:44→23:43)
[2023-05-13 00:54] VITALS: BP 143/97
[2023-05-13] MEDS ORDERED: chlordiazePOXIDE HCL 25 MG CAP PO SCH ×2 (00:54→10:00)
[2023-05-13] MEDS: chlordiazePOXIDE HCL 25 MG CAP PO SCH ×3 (01:13→22:44)
[2023-05-13] MEDS ORDERED: chlordiazePOXIDE HCL 25 MG CAP PO ONE (01:15)
[2023-05-13] MEDS ORDERED: PNEUMOCOCCAL VACC POLYS 25 MCG/0.5 ML VIAL IM ONE (01:30)
[2023-05-13] MEDS ORDERED: ZOLP5TAB5 PO (01:40)
[2023-05-13] MEDS ORDERED: OLAN20TA30 PO (01:40)
[2023-05-13] MEDS: SODIUM CHLORIDE 0.9% 1,000 ML IV SCH ×3 (03:35→20:15)
[2023-05-13 05:00] VITALS: BP 118/90
[2023-05-13 08:54] VITALS: BP 130/87
[2023-05-13 09:00] LABS: Folate (Folic Acid) > 24.00 ng/mL (5.38-24)
[2023-05-13] MEDS: PANTOPRAZOLE 40 MG/10 ML VIAL INJ IV SCH (09:56)
[2023-05-13] MEDS: NICOTINE 21MG/24 HR TOPICAL PATCH TD SCH (10:03)
[2023-05-13 13:00] VITALS: BP 135/89
[2023-05-13 16:54] VITALS: BP 15/102
[2023-05-13] MEDS: FOLIC ACID 1 MG, MULTIPLE VITAMIN 10 ML, MAGNESIUM SULF SDV 50% 8 MEQ, THIAMINE INJ 100... INJ SCH ×5 (17:52)
[2023-05-13 23:33] VITALS: BP 134/81
[2023-05-14] MEDS: SODIUM CHLORIDE 0.9% 1,000 ML IV SCH ×2 (04:35→12:55)
[2023-05-14 05:27] VITALS: BP 163/111
[2023-05-14] MEDS: MORPHINE SULFATE INJ 2 MG/ml SYRG IV PRN (06:42)
[2023-05-14] MEDS ORDERED: chlordiazePOXIDE HCL 25 MG CAP PO SCH (07:00)
[2023-05-14 09:00] VITALS: BP 111/69
[2023-05-14] MEDS: METOPROLOL TARTRATE 50 MG TAB PO SCH (10:03)
[2023-05-14] MEDS: OLANZapine 5 MG TAB PO SCH (10:04)
[2023-05-14] MEDS: NICOTINE 21MG/24 HR TOPICAL PATCH TD SCH (10:04)
[2023-05-14 13:00] VITALS: BP 139/91
[2023-05-14 16:49] VITALS: BP 159/96
[2023-05-14] MEDS: FOLIC ACID 1 MG, MULTIPLE VITAMIN 10 ML, MAGNESIUM SULF SDV 50% 8 MEQ, THIAMINE INJ 100... INJ SCH ×5 (16:52)
== END 2023-05-14 21:50 | disposition left against medical advice (07) | DRG 426 ==
LOC: ER 11:58 → EDBD 11:58 → TELE 18:18 → TELE-WESTW 05-12 22:50
PROVIDERS: ADMIT Nurse Practitioner Family; ATTEND Internal Medicine
DX: E87.1 Hypo-osmolality and hyponatremia (principal); E66.9 Obesity, unspecified; E86.0 Dehydration; S41.111A Laceration without foreign body of right upper arm, initial encounter; I16.1 Hypertensive emergency; F20.9 Schizophrenia, unspecified; F31.9 Bipolar disorder, unspecified; F10.229 Alcohol dependence with intoxication, unspecified; W01.0XXA Fall on same level from slipping, tripping and stumbling without subsequent striking against object, initial encounter; Z53.29 Procedure and treatment not carried out because of patient's decision for other reasons; F12.90 Cannabis use, unspecified, uncomplicated; F10.239 Alcohol dependence with withdrawal, unspecified; F10.220 Alcohol dependence with intoxication, uncomplicated; Z23 Encounter for immunization; Z72.0 Tobacco use; Z81.8 Family history of other mental and behavioral disorders; Z88.8 Allergy status to other drugs, medicaments and biological substances; Y93.89 Activity, other specified; Y92.098 Other place in other non-institutional residence as the place of occurrence of the external cause; Y99.8 Other external cause status; Z68.28 Body mass index [BMI] 28.0-28.9, adult
CPT/HCPCS: 36415; 70450; 72125; 80053; 80320; 82570; 82607; 82746; 83930; 83935; 84300; 84425; 85025; 85610; 85730; 87081; 90471; 90715; 96361; 96365; 96375; 97110; 97116; 97163; C9113; G0378; J2405; J7060